=== PATIENT | female | born 1990 | race Caucasian/White ===

== ENCOUNTER 2018-07-21 09:29 | Emergency (ER) | payer OTHER ==
[~2018-07-21] VITALS: Ht 154.9 cm; Wt 75.0 kg
[~2018-07-21 09:29] MED LIST: ALBU17AE26
[2018-07-21] MEDS ORDERED: LORAZEPAM 0.5MG TABLET PO ONE (11:45)
[2018-07-21] MEDS ORDERED: ACETAMINOPHEN 500MG TABLET PO ONE (13:30)
[2018-07-21 14:06] VITALS: BP 111/58
== END 2018-07-21 14:16 | disposition home or self-care (01) ==
LOC: ER 11:24
DX: F41.9 Anxiety disorder, unspecified (principal); R51 Headache; J45.909 Unspecified asthma, uncomplicated; F17.200 Nicotine dependence, unspecified, uncomplicated; Z98.890 Other specified postprocedural states
CPT/HCPCS: 81025; 93005; 99284

== ENCOUNTER 2020-08-07 14:49 | Emergency (ER) | payer OTHER ==
[~2020-08-07] VITALS: Ht 152.4 cm; Wt 82.0 kg
[2020-08-07 17:49] VITALS: BP 122/75
[2020-08-07 20:12] LABS: BASOPHILS % 0.7 % (0.0-2.0); EOSINOPHILS % 1.2 % (0.0-5.0); HEMATOCRIT. 40.7 % (36.0-48.0); HEMOGLOBIN. 13.7 g/dL (12.0-16.0); LYMPHOCYTES % 33.6 % (20.0-50.0); MEAN CORPUSCULAR HEMOGLOBIN 28.8 pg (28.0-32.0); MEAN CORPUSCULAR VOLUME 85.8 fL (81.0-99.0); MEAN PLATELET VOLUME 7.9 fl (7.4-10.4); MONOCYTES % 5.8 % (2.0-8.0); NEUTROPHILS % 58.7 % (40.0-76.0); PLATELET 341 x1000/uL (130-400); RED BLOOD CELL COUNT 4.75 mill/uL (4.2-5.4); RED CELL DISTRIBUTION WIDTH 12.5 % (11.6-14.6)
[2020-08-07 20:26] LABS: CLARITY URINE CLOUDY (CLEAR); COLOR URINE YELLOW (YELLOW); KETONES URINE 2+ (NEGATIVE); LEUKOCYTE ESTERASE URINE TRACE (NEGATIVE); NITRITE URINE POSITIVE (NEGATIVE); OCCULT BLOOD URINE NEGATIVE (NEGATIVE); PH URINE 6.5 (4.5-8.0); PROTEIN URINE NEGATIVE (NEGATIVE); SPECIFIC GRAVITY URINE 1.027 (1.005-1.030)
[2020-08-07] MEDS ORDERED: SODIUM CHLORIDE 0.9% 1000ML BAG (SEPSIS BOLUS) IV ONE (20:30)
[2020-08-07] MEDS ORDERED: METOCLOPRAMIDE HCL 10MG/2ML VIAL IV ONE (20:30)
[2020-08-07 20:36] LABS: CHLORIDE 108 mEq/L (98-107)
[2020-08-07 20:45] LABS: HCG SCREEN POSITIVE
[2020-08-07 21:00] LABS: B-HCG QUANTITATIVE 37116 mIU/mL (<3)
[2020-08-07] MEDS ORDERED: DIPHENHYDRAMINE 50MG/ML VIAL IV ONE (21:30)
== END 2020-08-07 22:48 | disposition home or self-care (01) ==
LOC: ER 14:49
DX: O23.41 Unspecified infection of urinary tract in pregnancy, first trimester (principal); B96.89 Other specified bacterial agents as the cause of diseases classified elsewhere; O20.0 Threatened abortion; O21.9 Vomiting of pregnancy, unspecified; O26.891 Other specified pregnancy related conditions, first trimester; R03.0 Elevated blood-pressure reading, without diagnosis of hypertension; R19.7 Diarrhea, unspecified; R79.89 Other specified abnormal findings of blood chemistry; Z3A.09 9 weeks gestation of pregnancy
CPT/HCPCS: 36415; 76801; 76817; 80053; 81003; 81025; 84702; 84703; 85025; 86850; 86900; 86901; 93005; 96361; 96374; 96375; 99285; J1200; J2765; J7030